=== PATIENT | female | born 1990 | race Caucasian/White ===

== ENCOUNTER 2017-05-01 17:43 | Emergency (ER) | payer OTHER ==
[~2017-05-01] VITALS: Ht 175.3 cm; Wt 104.5 kg
[2017-05-01 17:49] VITALS: BP 120/78; PULSE 82; RESP 16; O2SAT 99
--- NOTE | 2017-05-01 19:08 | ED.REPORT ---
HPI-Rash / Abscess Date of Service May 01, 2017 ED Provider: Stefanie Steen History of Present Illness: 26-year-old female with a left lower leg area of erythema and pain this morning. It started out as 2 papules and spread it to 1 large papule. It is painful not itchy certainly thought it was a mosquito bite now she is not so sure. No fever Nursing Notes Stated Complaint: POSSIBLE SPIDER BITE Chief Complaint: Skin Rash/Abscess Nursing Notes Reviewed: Yes Allergies: Coded Allergies: acetaminophen (Verified Allergy, Mild, vomiting, 05/01/17) hydrocodone (Verified Allergy, Mild, vomiting, 05/01/17) Scheduled PRN Bacitracin (Bacitracin Ointment) 28.4 Gm Oint...g. 1 APPLIC TP TID PRN PRN For Laceration General Time Seen by MD: 18:46 Chief Complaint Abscess Hx Obtained From: Patient Arrived By: Walk-in Onset Occurred: 5 - 8 hours ago Symptom Duration: 5 - 8 hours Location: : Lower extremity Severity: Current: Moderate Severity: Maximum: Moderate Pertinent Negative: Pt denies other symptoms Recent Healthcare: No recent doctor visit Similar Sx Previous: No Past Medical History Past Medical History Notes: denies Review of Systems Constitutional: Denies: Chills, Fatigue Skin: Reports Rash, Reports Swelling Complete sys rev & neg: except as marked. Physical Exam Initial Vital Signs Vital Signs (First) Date Time Temp Pulse Resp B/P Pulse Ox O2 Delivery O2 Flow Rate FiO2 05/01/17 17:49 36.9 82 16 120/78 99 Room Air Initial VS: Reviewed, Vital signs normal Head / Eyes: Atraumatic, Normocephalic, PERRL Respiratory: Breath sounds normal, Clear to auscultation, No respiratory distress Cardiovascular: Regular rate & rhythm, Heart sounds normal, Intact distal pulses Neurologic: Alert, Oriented, Nonfocal Psychiatric: Mood/affect normal, Behavior normal, Normal thought content Skin: Atraumatic, Color NL Rash / Lesion Notes: Quarter-sized lesion on left anterior lower leg mildly tender. Ankle and crust present. Discharge & Departure Impression: Primary Impression: Impetigo Disposition: Home Discharge Condition All VS Reviewed: Yes Condition: Stable Patient Instructions: Impetigo (ED) Additional Instructions: Apply antibacterial ointment 2-3 times a day. Follow-up in 2 days for recheck with your PCP or the walk-in clinic if you cannot get an appointment. Apply heat to wound to help with drainage. Referrals: Tomas Gabriel DO (PCP) EDSupervising Provider for APC: Asim Elizabeth Linnea K ARNP May 01, 2017 19:07
[2017-05-01] MEDS ORDERED: BACI28.4 TP (19:11)
[2017-05-01 19:21] VITALS: BP 120/78; PULSE 82; RESP 16; O2SAT 99
== END 2017-05-01 19:21 | disposition home or self-care (01) ==
LOC: SED 17:43
DX: L01.00 Impetigo, unspecified (principal); Z88.5 Allergy status to narcotic agent; Z88.8 Allergy status to other drugs, medicaments and biological substances